=== PATIENT | male | born 1950 | race Caucasian/White ===

== ENCOUNTER → 2020-10-02 16:22 | Outpatient (BNVA) | payer MEDICARE, OTHER, SELFPAY | PROVIDERS: Family Provider Nurse Practitioner; PCP Nurse Practitioner; Visit Provider Nurse Practitioner | DX: M79.604 Pain in right leg (principal); M47.817 Spondylosis without myelopathy or radiculopathy, lumbosacral region; Z12.11 Encounter for screening for malignant neoplasm of colon | CPT/HCPCS: 80053; 85025 ==

== ENCOUNTER → 2020-10-08 15:20 | Outpatient (BNVA) | payer MEDICARE, OTHER, SELFPAY | PROVIDERS: Family Provider Nurse Practitioner; PCP Nurse Practitioner; Visit Provider Nurse Practitioner | DX: Z12.11 Encounter for screening for malignant neoplasm of colon (principal) | CPT/HCPCS: 82270 ==

== ENCOUNTER → 2021-07-27 10:12 | Outpatient (BNVA) | payer MEDICARE, OTHER, SELFPAY | PROVIDERS: Family Provider Nurse Practitioner; PCP Nurse Practitioner; Visit Provider Nurse Practitioner | DX: Z13.6 Encounter for screening for cardiovascular disorders (principal); M47.817 Spondylosis without myelopathy or radiculopathy, lumbosacral region | CPT/HCPCS: 80053; 80061; 85025 ==

== ENCOUNTER 2022-03-24 11:50 | Oncology outpatient (recurring) (ONCR) | payer MEDICARE, OTHER, SELFPAY | END 2022-03-30 23:59 | disposition home or self-care (01) | PROVIDERS: Family Provider Nurse Practitioner; PCP Nurse Practitioner; Visit Provider Internal Medicine Hematology & Oncology | DX: C50.822 Malignant neoplasm of overlapping sites of left male breast (principal); Z17.0 Estrogen receptor positive status [ER+]; Z90.12 Acquired absence of left breast and nipple; M47.817 Spondylosis without myelopathy or radiculopathy, lumbosacral region; R22.41 Localized swelling, mass and lump, right lower limb; Z12.11 Encounter for screening for malignant neoplasm of colon; Z79.818 Long term (current) use of other agents affecting estrogen receptors and estrogen levels; Z79.899 Other long term (current) drug therapy | CPT/HCPCS: 99204; 99205; 99999 ==

== ENCOUNTER 2022-03-30 13:25 | Outpatient (CLI) | payer MEDICARE, OTHER, SELFPAY ==
--- NOTE | 2022-03-30 13:47 | MM_ITS ---
WS: [id number] BILATERAL 3D TOMOSYNTHESIS DIGITAL DIAGNOSTIC MAMMOGRAPHY WITH CAD CLINICAL INFORMATION: LEFT BREAST MASS HISTORY: Invasive ductal carcinoma from recent in office biopsy. LEFT nipple retraction. COMPARISON: None. TECHNIQUE: Bilateral CC, MLO, and ML views. FINDINGS: Scattered fibroglandular densities bilaterally. Palpable marker LEFT breast. Spiculated underlying As ymmetric mass. Ultrasound is pending. RIGHT breast appears unremarkable ULTRASOUND BREAST LEFT TECHNIQUE: Ultrasound left breast focused area of concern. CLINICAL INFORMATION: LEFT BREAST MASS COMPARISON: None. FINDINGS: Ultrasound LEFT breast at the areola. In the area of palpable concern, there is a hypoechoic densely shadowing solid lesion consistent with neoplasm. This measures approximately 1.3 x 1.3 x 1.5 cm with associated vascularity. This extends to the nipple. In addition enlarged abnormal-appearing lymph nodes in the LEFT axilla with replacement of the vnai l fatty hilum the largest measuring 1.5 x 0.6 x 1.3 cm highly suspicious for metastatic disease. Additional abnormal suspicious lymph nodes measuring 0.6 x 0.7 x 0.9 cm and 0.8 x 0.4 x 0.8 cm also s uspicious for metastatic disease. RIGHT nipple for comparison IMPRESSION: MM/[place] [id number] BI-RADS: 6-Known Biopsy-Proven Malignancy FOLLOW UP: US Guided Biopsy Recommended Previous punch biopsy of the areola was performed in office. Recommend ultrasou nd-guided biopsy of the LEFT subareolar LEFT breast mass and largest LEFT axill prateek lymph node In addition, Recommend breast surgery consultation for further evaluation.
--- NOTE | 2022-03-30 13:49 | US_ITS ---
WS: [id number] Subcutaneous ultrasound of the anterior right thigh, 03/30/2022 Clinical Data: Right tight mass Comparison: Subcutaneous ultrasound of the anterior right thigh, 02/17/2018 Findings: The anterior medial right thigh has a well bordered mass measuring 1.30 x 4.97 x 7.84 cm. The mass de monstrates mixed echotexture and minimal blood flow. This mass has changed little compared to the nando or study. Again this mass may represent a soft tissue neoplasm of low malignant potential. US/US soft tissue/extremity [id number] Impression: Soft tissue mass of the right thigh with little change from 4 years ago.
== END 2022-03-30 13:26 | disposition home or self-care (01) ==
PROVIDERS: Family Provider Nurse Practitioner; PCP Nurse Practitioner; Visit Provider Surgery
DX: C50.922 Malignant neoplasm of unspecified site of left male breast (principal); R22.41 Localized swelling, mass and lump, right lower limb
CPT/HCPCS: 76642; 76882; 77062

== ENCOUNTER 2022-04-05 10:19 | Day surgery (SDC) | payer MEDICARE, OTHER, SELFPAY ==
[2022-04-02 11:03] VITALS: BMI 26.6
[2022-04-05] VITALS (7 sets, daily range): BP systolic 136–155; BP diastolic 72–105; PULSE 61–84; RESP 16–18; TEMP 36.3–36.6; O2SAT 96–100
--- NOTE | 2022-04-05 11:06 | NM_ITS ---
WS: [id number] NUCLEAR MEDICINE SENTINEL LYMPH NODE IMAGING HISTORY: BREAST CANCER, LEFT COMPARISON: None available. TECHNIQUE: The patient was injected with 1.1 mCi of Technetium 99 ultra filtered sulfur colloid. Inje ction is intradermal in a periareolar location. Four aliquots are used. NM/NM sentinel node inject [id number] IMPRESSION: LEFT breast sentinel lymph node injection. Injection completed at 11:06 AM.
--- NOTE | 2022-04-05 11:18 | PC.NURSE ---
LEFT BREAST SENTINEL NODE INJECTION OF 1.03 mCi Tc99m Filtered Sulfur Colloid BY DR ANA CANO COMPLETED AT 1106 AM
[2022-04-05] MEDS: sodium chloride 0.9% 1,000 ML 30 ML IV (11:30)
[2022-04-05] MEDS: heparin 5,000 unit/mL INJ 1 mL 5000 UNIT SUBCUT (11:47)
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
--- NOTE | 2022-04-05 14:38 | W.PM.OPSUD ---
Surgery/Procedure H&P Update DATE OF PROCEDURE: April 05, 2022 DATE H&P PERFORMED: 03/24/22 CHANGES TO PREVIOUS DOCUMENTATION: no mediport being placed at this time. PREOP DIAGNOSIS: Breast Cancer PRIMARY INDICATION FOR PROCEDURE: breast cancer PLANNED PROCEDURE: Operation Date: 04/05/22 13:00 Proposed Procedures p left mastectomy and sential lymph node bx and port placment [id number] 26230/C50.922(Left) - DO raymond Morrissey Sentinal Lymph Node Biopsy(Left) - DO raymond Morrissey Portacath Placement(Not Applicable) - Mazin Gan DO
[2022-04-05] MEDS: isosulfan blue 10 mg/mL SDV 5mL SUBCUT (15:10)
--- NOTE | 2022-04-05 17:33 | P.OP_ITS ---
Operative Report Date of procedure: April 05, 2022 Pre-op diagnosis: Preop Diagnosis Breast Cancer Post-op diagnosis: Left breast cancer Procedure done: Left sentinel lymph node biopsy and modified radical mastectomy Specimens removed/disposition: 1. [place] Lymph nodes 2. Left modified radical mastectomy 3. Additional axillary contents Surgeon: Dr. Mazin Gan DO Estimated blood loss: 50 Brief History: 71-year-old gentleman found to have left breast cancer. He has nipple involvement and retraction as well as adjacent skin involvement. Mastectomy and sentinel lymph node biopsy were indicated. Risks and benefits were explained and documented. Procedure: Patient was 1 operative room placed on the OR table in the supine position. General endotracheal intubation was achieved by the department of anesthesia. Lymphazurin blue was injectedinto the mass which was subareolar. This area was massaged for 5 minutes.? We prepped and draped the left breast and axilla.? A timeout was performed.? All present were in agreement.? A somewhat obliqueexcision was made from medial to the latissimus dorsi to lateral to the sternum, encompassing the nipple and all obviously involved skin. The lateral dissection was performed first.? I dissected down to the latissimus dorsi and superior to the fascia using Bovie cautery.? Using Bovie cautery and the [place] counter I searched for a sentinel node.? With much exploration, no lymph node could be found with a significant [place] counter or blue dye.? Multiple prominent nodes were identified and excised. Clinically these were positive for tumor. These were sent for frozen section. No lymph node tissue was identified on frozen section however these were tumor metastases. Attention was then brought back to the mastectomy.? The horizontal ellipse excision was made with a 15 blade scalpel and carried down to the fatty tissue with Bovie cautery.? I started with the superior flap and removed all the breast tissue using Bovie cautery.? This was carried up to the clavipectoral fascia and down to the pectoralis major.? All breast tissue was removed laterally to the latissimus dorsi and proximally to the sternum.? I then went to the inferior flap. All breast tissue was removed with Bovie cautery down to the inframammary fold.? I carried the dissection down to the pectoralis major and removed all the breast tissue in its entirety.? Hemostasis was achieved with electrocautery and medium sized clips.? I then moved into the axilla for an axillary dissection. The clavipectoral fascia was further incised and axillary tissue was removed en bloc. The long thoracic nerve and thoracic dorsal nerve were identified and preserved. The intercostal brachial nerve was identified and clipped and transected. The breast and axillary contents were removed and a stitch was plac ed on the medial margin to long the specimen.? The specimen was passed off.? Further dissection was performed in the axilla and additional axillary contents were removed and sent to pathology. The surgical field was irrigated and suctioned.? There were no signs of bleeding.? A 19 [place] drain was then placed underneath the skin and sewn in place with 3-0 nylon.? There was a small area of skin in the axilla which appeared to potentially be compromised due to dissection too close to the dermis. This area was excised in an elliptical fashion. Dermis was then approximated with 3-0 Vicryl in interrupted fashion.? Skin was then closed with 4-0 Vicryl in a subcuticular running fashion.? Skin glue and bandage was applied. Patient tolerated the procedure well and was wheeled in the postoperative anesthesia care unit in good condition.
[2022-04-05] MEDS: HYDROcodone-acetaminophen 5-325 mg Tablet 2 TAB PO (18:52)
[2022-04-19 09:15] LABS: Miscellaneous Test See Scanned Lab Rpt
== END 2022-04-05 19:13 | disposition home or self-care (01) ==
PROVIDERS: Family Provider Nurse Practitioner; PCP Nurse Practitioner; Visit Provider Surgery
PROC: (CPT 19303; principal; 2022-04-05 13:00)
PROC: (CPT 19307; 2022-04-05 13:00)
DX: C50.022 Malignant neoplasm of nipple and areola, left male breast (principal); Z79.82 Long term (current) use of aspirin
CPT/HCPCS: 19307; 38500; 38792; 88307; 88331; 88361; 88374; A9541; J1100; J1170; J1644; J2405; J2704; J3010; J3490; J7030; Q9968

== ENCOUNTER 2022-04-28 09:30 | Oncology outpatient (recurring) (ONCR) | payer MEDICARE, OTHER, SELFPAY ==
[2022-04-28 09:33] LABS: Basophils # 0.1 10^3/uL (0.0-0.1); Basophils % 1.3 %; Eosinophils # 0.2 10^3/uL (0.0-0.8); Eosinophils % 4.9 %; Hematocrit 40.5 % (42.0-52.0); Hemoglobin 13.7 g/dL (11.7-16.6); Lymphocytes # 1.9 10^3/uL (0.8-4.8); Lymphocytes % 39.2 %; Mean Corpuscular HGB Conc 33.8 g/dL (30.0-36.0); Mean Corpuscular Hemoglobin 31.6 pg (28.0-34.0); Mean Corpuscular Volume 93.3 fl (80-94); Mean Platelet Volume 9.6 fL (7.4-10.4); Monocytes # 0.8 10^3/uL (0.2-0.9); Monocytes % 15.9 %; Neutrophils # 1.82 10^3/uL (1.8-7.7); Neutrophils % 38.5 %; Nucleated Red Blood Cells % 0 %; Platelet Count 334 10^3/cmm (130-400); Red Blood Count 4.34 10^6/uL (4.1-5.3); Red Cell Distribution Width 14.2 % (12.1-15.1); White Blood Count 4.7 10^3/uL (4.0-10.0)
[2022-04-28 10:05] LABS: Alanine Aminotransferase 13 U/L (0-41); Albumin Level 4.3 g/dL (3.5-5.2); Alkaline Phosphatase 93 IU/L (40-130); Anion Gap 12.3 (5-19); Aspartate Amino Transferase 19 U/L (0-40); Blood Urea Nitrogen 9 mg/dL (8-23); Calcium 8.6 mg/dL (8.5-10.5); Carbon Dioxide 28 mmol/L (22-29); Chloride 103 mmol/L (98-107); Creatinine Clr Calc Pharmacy 82.9909; Globulin 3.1 g/dL (1.3-4.6); Glucose 85 mg/dL (65-115); Osmolality Calculated 286 mOsm/kg (285-295); Potassium 4.3 mmol/L (3.5-5.1); Sodium 139 mmol/L (136-145); Total Bilirubin 0.4 mg/dL (0.15-1.2); Total Protein 7.4 g/dL (6.6-8.7)
== END 2022-04-29 23:59 | disposition home or self-care (01) ==
PROVIDERS: Family Provider Nurse Practitioner; PCP Nurse Practitioner; Visit Provider Internal Medicine Hematology & Oncology
DX: C50.822 Malignant neoplasm of overlapping sites of left male breast (principal); Z17.0 Estrogen receptor positive status [ER+]; Z90.12 Acquired absence of left breast and nipple; C77.8 Secondary and unspecified malignant neoplasm of lymph nodes of multiple regions; M47.817 Spondylosis without myelopathy or radiculopathy, lumbosacral region; R22.41 Localized swelling, mass and lump, right lower limb
CPT/HCPCS: 36415; 80053; 85025; 99213; 99214

== ENCOUNTER → 2022-05-11 09:06 | Outpatient (BNVA) | payer MEDICARE, OTHER, SELFPAY | PROVIDERS: Family Provider Nurse Practitioner; PCP Nurse Practitioner; Visit Provider Surgery | DX: C50.922 Malignant neoplasm of unspecified site of left male breast (principal); R59.1 Generalized enlarged lymph nodes | CPT/HCPCS: 99213 ==

== ENCOUNTER 2022-05-31 05:38 | Day surgery (SDC) | payer MEDICARE, OTHER, SELFPAY ==
[2022-05-28 10:25] VITALS: BMI 25.9
[2022-05-31] VITALS (8 sets, daily range): BP systolic 124–182; BP diastolic 82–98; PULSE 67–85; RESP 14–17; TEMP 36.2–36.4; O2SAT 95–98
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
[2022-05-31] MEDS: sodium chloride 0.9% 1,000 ML 30 ML IV (06:33)
--- NOTE | 2022-05-31 06:48 | W.PM.OPSUD ---
Surgery/Procedure H&P Update DATE OF PROCEDURE: May 31, 2022 DATE H&P PERFORMED: 05/11/22 CHANGES TO PREVIOUS DOCUMENTATION: NONE PREOP DIAGNOSIS: Right supraclavicular lymphadenopathy PLANNED PROCEDURE: Operation Date: 05/31/22 07:00 Proposed Procedures p EXCISIONAL BX RIGHT SUPRACLAVICULAR LYMPH NODE 11439,R59.1(Right) - Mazin Gan DO
[2022-05-31] MEDS: ceFAZolin 2,000 MG in sodium chloride 0.9% (plus) 50 ML 100 MG IV (06:59)
--- NOTE | 2022-05-31 07:53 | PM.OP ---
Operative Report Date of procedure: May 31, 2022 Pre-op diagnosis: Preop Diagnosis Right supraclavicular lymphadenopathy Post-op diagnosis: same Procedure done: Excisional biopsy right supraclavicular lymph node Specimens removed/disposition: Right supraclavicular lymph node Surgeon: Dr. Mazin Gan DO Anesthesia: General Complications: None apparent Findings: Enlarged and black right supraclavicular lymph node Brief History: Patient with a history of left mastectomy with axillary node dissection for carcinoma Procedure: The right neck was inspected prepped and draped in the usual sterile fashion. A timeout was performed. All present were in agreement 2% lidocaine with epinephrine was used to anesthetize the right supraclavicular area. A 15 blade scalpel then used to make a 5 cm diagonal incision posterior to the sternocleidomastoid.. Incision was carried down to subcutaneous tissue and then through the platysma's. A combination of blunt and sharp dissection was performed to explore the right supraclavicular area. A large and black lymph node was identified. This was removed with sharp dissection, Bovie cautery and medium clips. Specimen was passed off for lymphoma protocol. Hemostasis was noted. Tameka was placed into the wound. The platysmas was approximated using 3-0 Vicryl in interrupted fashion. The dermis was approximated using 3-0 Vicryl in an interrupted fashion. 4-0 Vicryl was use to close the skin in a running subcuticular fashion. Hemostasis was noted. Skin glue was used. Patient tolerated the procedure well.
[2022-05-31] MEDS: meperidine 50 mg/mL INJ 12.5 MG IVP (08:17)
--- NOTE | 2022-05-31 12:33 | ANE.PACU2 ---
Inpatient post-anesthesia follow up: Airway intact: Yes Vital signs: Temperature 97.2 F Pulse Rate 67 Respiratory Rate 16 Blood Pressure 163/82 Pulse Oximetry 96 Oxygen Delivery Me thod Room Air Oxygen Flow Rate Fraction of Inspir ed Oxygen Hydration adequate: Yes Nausea and vomiting: No Pain level: 1 Mental status: Baseline
[2022-06-01 12:53] LABS: Lymphoma Profile (BBPL) See Report
== END 2022-05-31 09:36 | disposition home or self-care (01) ==
PROVIDERS: PCP Nurse Practitioner; Visit Provider Surgery
PROC: (CPT 38500; principal; 2022-05-31 07:00)
DX: R59.1 Generalized enlarged lymph nodes (principal); Z85.3 Personal history of malignant neoplasm of breast; Z87.891 Personal history of nicotine dependence; Z79.82 Long term (current) use of aspirin
CPT/HCPCS: 38500; 87015; 87070; 87102; 87116; 87176; 87205; 87206; 87801; 88184; 88185; 88307; 88342; J1100; J2175; J2405; J2704; J3010; J3490; J7030

== ENCOUNTER → 2022-06-16 13:52 | Outpatient (BNVA) | payer MEDICARE, OTHER, SELFPAY | PROVIDERS: PCP Nurse Practitioner; Visit Provider Surgery | DX: C50.922 Malignant neoplasm of unspecified site of left male breast (principal) | CPT/HCPCS: 99213 ==

== ENCOUNTER 2022-06-28 08:05 | Oncology outpatient (recurring) (ONCR) | payer MEDICARE, OTHER, SELFPAY | END 2022-06-30 23:59 | disposition home or self-care (01) | PROVIDERS: PCP Nurse Practitioner; Visit Provider Internal Medicine Hematology & Oncology | DX: C50.822 Malignant neoplasm of overlapping sites of left male breast (principal); Z17.0 Estrogen receptor positive status [ER+]; Z90.12 Acquired absence of left breast and nipple; M47.817 Spondylosis without myelopathy or radiculopathy, lumbosacral region; R22.41 Localized swelling, mass and lump, right lower limb; Z79.818 Long term (current) use of other agents affecting estrogen receptors and estrogen levels; Z79.899 Other long term (current) drug therapy | CPT/HCPCS: 99214; 99215 ==

== ENCOUNTER 2022-08-17 13:25 | Oncology outpatient (recurring) (ONCR) | payer MEDICARE, OTHER, SELFPAY | END 2022-08-30 23:59 | disposition home or self-care (01) | PROVIDERS: PCP Nurse Practitioner; Visit Provider Internal Medicine Hematology & Oncology | DX: C50.822 Malignant neoplasm of overlapping sites of left male breast (principal); Z17.0 Estrogen receptor positive status [ER+]; Z90.12 Acquired absence of left breast and nipple; Z79.818 Long term (current) use of other agents affecting estrogen receptors and estrogen levels; Z79.899 Other long term (current) drug therapy | CPT/HCPCS: 99214 ==

== ENCOUNTER 2022-09-15 08:05 | Oncology outpatient (recurring) (ONCR) | payer MEDICARE, OTHER, SELFPAY ==
[2022-09-15 08:21] LABS: Basophils # 0.1 10^3/uL (0.0-0.1); Basophils % 1.6 %; Eosinophils # 0.2 10^3/uL (0.0-0.8); Eosinophils % 3.7 %; Hemoglobin 14.6 g/dL (11.7-16.6); Lymphocytes # 1.3 10^3/uL (0.8-4.8); Lymphocytes % 29.4 %; Mean Corpuscular Hemoglobin 31.8 pg (28.0-34.0); Mean Corpuscular Volume 93.7 fl (80-94); Mean Platelet Volume 10.1 fL (7.4-10.4); Monocytes # 0.7 10^3/uL (0.2-0.9); Monocytes % 15.2 %; Neutrophils # 2.17 10^3/uL (1.8-7.7); Neutrophils % 49.9 %; Nucleated Red Blood Cells % 0 %; Platelet Count 276 10^3/cmm (130-400); Red Blood Count 4.59 10^6/uL (4.1-5.3); Red Cell Distribution Width 14.6 % (12.1-15.1); White Blood Count 4.4 10^3/uL (4.0-10.0)
[2022-09-15 08:47] LABS: Alanine Aminotransferase 45 U/L (0-41); Albumin Level 3.9 g/dL (3.5-5.2); Alkaline Phosphatase 71 U/L (40-130); Anion Gap 13.2 (5-19); Aspartate Amino Transferase 32 U/L (0-40); Blood Urea Nitrogen 8 mg/dL (8-23); Carbon Dioxide 29 mmol/L (22-29); Chloride 101 mmol/L (98-107); Globulin 3.4 g/dL (1.3-4.6); Glucose 90 mg/dL (65-115); Osmolality Calculated 286 mOsm/kg (285-295); Potassium 4.2 mmol/L (3.5-5.1); Sodium 139 mmol/L (136-145); Total Bilirubin 0.7 mg/dL (0.15-1.2); Total Protein 7.3 g/dL (6.6-8.7)
== END 2022-09-29 23:59 | disposition home or self-care (01) ==
PROVIDERS: PCP Nurse Practitioner; Visit Provider Internal Medicine Hematology & Oncology
DX: C50.822 Malignant neoplasm of overlapping sites of left male breast (principal); Z17.0 Estrogen receptor positive status [ER+]; Z90.12 Acquired absence of left breast and nipple; C77.8 Secondary and unspecified malignant neoplasm of lymph nodes of multiple regions; Z79.899 Other long term (current) drug therapy; Z79.818 Long term (current) use of other agents affecting estrogen receptors and estrogen levels
CPT/HCPCS: 36415; 80053; 85025; 99205; 99214

== ENCOUNTER → 2022-11-17 09:44 | Outpatient (BNVA) | payer MEDICARE, SELFPAY | PROVIDERS: PCP Nurse Practitioner; Visit Provider Internal Medicine Hematology & Oncology | DX: C50.922 Malignant neoplasm of unspecified site of left male breast (principal) | CPT/HCPCS: 80053; 85025 ==

== ENCOUNTER 2022-11-26 08:15 | Oncology outpatient (recurring) (ONCR) | payer MEDICARE, OTHER, SELFPAY ==
[2022-11-08 09:56] LABS: Basophils # 0.1 10^3/uL (0.0-0.1); Basophils % 1.5 %; Eosinophils # 0.2 10^3/uL (0.0-0.8); Eosinophils % 4.2 %; Hematocrit 43.1 % (42.0-52.0); Lymphocytes # 1.5 10^3/uL (0.8-4.8); Lymphocytes % 32.3 %; Mean Corpuscular HGB Conc 32.5 g/dL (30.0-36.0); Mean Corpuscular Hemoglobin 31.3 pg (28.0-34.0); Mean Corpuscular Volume 96.2 fl (80-94); Mean Platelet Volume 10.2 fL (7.4-10.4); Monocytes # 0.7 10^3/uL (0.2-0.9); Neutrophils # 2.22 10^3/uL (1.8-7.7); Neutrophils % 46.8 %; Nucleated Red Blood Cells % 0 %; Platelet Count 288 10^3/cmm (130-400); Red Blood Count 4.48 10^6/uL (4.1-5.3); Red Cell Distribution Width 14.2 % (12.1-15.1); White Blood Count 4.7 10^3/uL (4.0-10.0)
[2022-11-08 10:20] LABS: Alanine Aminotransferase 30 U/L (0-41); Albumin Level 4.2 g/dL (3.5-5.2); Alkaline Phosphatase 75 U/L (40-130); Anion Gap 13.2 (5-19); Aspartate Amino Transferase 26 U/L (0-40); Blood Urea Nitrogen 8 mg/dL (8-23); Calcium 9.3 mg/dL (8.5-10.5); Carbon Dioxide 29 mmol/L (22-29); Chloride 105 mmol/L (98-107); Globulin 2.7 g/dL (1.3-4.6); Glucose 88 mg/dL (65-115); Osmolality Calculated 292 mOsm/kg (285-295); Potassium 5.2 mmol/L (3.5-5.1); Sodium 142 mmol/L (136-145); Total Bilirubin 0.4 mg/dL (0.15-1.2); Total Protein 6.9 g/dL (6.6-8.7)
[2022-11-26 08:16] LABS: Basophils # 0.1 10^3/uL (0.0-0.1); Basophils % 1.3 %; Eosinophils # 0.2 10^3/uL (0.0-0.8); Eosinophils % 4.4 %; Hematocrit 41.2 % (42.0-52.0); Hemoglobin 13.6 g/dL (11.7-16.6); Lymphocytes # 1.3 10^3/uL (0.8-4.8); Mean Corpuscular Hemoglobin 32.1 pg (28.0-34.0); Mean Corpuscular Volume 97.2 fl (80-94); Mean Platelet Volume 10.3 fL (7.4-10.4); Monocytes # 0.4 10^3/uL (0.2-0.9); Monocytes % 11.5 %; Neutrophils # 1.83 10^3/uL (1.8-7.7); Neutrophils % 47.8 %; Nucleated Red Blood Cells % 0 %; Platelet Count 177 10^3/cmm (130-400); Red Blood Count 4.24 10^6/uL (4.1-5.3); Red Cell Distribution Width 14.3 % (12.1-15.1); White Blood Count 3.8 10^3/uL (4.0-10.0)
[2022-11-26 08:34] LABS: Alanine Aminotransferase 9 U/L (0-41); Alkaline Phosphatase 66 U/L (40-130); Aspartate Amino Transferase 19 U/L (0-40); Blood Urea Nitrogen 10 mg/dL (8-23); Calcium 8.7 mg/dL (8.5-10.5); Carbon Dioxide 30 mmol/L (22-29); Chloride 103 mmol/L (98-107); Globulin 2.9 g/dL (1.3-4.6); Glucose 86 mg/dL (65-115); Osmolality Calculated 288 mOsm/kg (285-295); Sodium 140 mmol/L (136-145); Total Bilirubin 0.4 mg/dL (0.15-1.2); Total Protein 6.9 g/dL (6.6-8.7)
[2022-11-26 08:36] LABS: Anion Gap 11.3 (5-19); Potassium 4.3 mmol/L (3.5-5.1)
== END 2022-11-30 23:59 | disposition home or self-care (01) ==
PROVIDERS: Nurse Practitioner; PCP Nurse Practitioner; Visit Provider Internal Medicine Hematology & Oncology
DX: C50.822 Malignant neoplasm of overlapping sites of left male breast (principal); Z90.12 Acquired absence of left breast and nipple; Z17.0 Estrogen receptor positive status [ER+]; Z79.810 Long term (current) use of selective estrogen receptor modulators (SERMs); Z79.899 Other long term (current) drug therapy
CPT/HCPCS: 36415; 80053; 85025; 99215

== ENCOUNTER 2023-01-24 11:43 | Oncology outpatient (recurring) (ONCR) | payer MEDICARE, OTHER, SELFPAY ==
[2023-01-10 13:47] LABS: Basophils # 0.1 10^3/uL (0.0-0.1); Basophils % 1.6 %; Eosinophils # 0.3 10^3/uL (0.0-0.8); Eosinophils % 5.1 %; Hemoglobin 14.2 g/dL (11.7-16.6); Lymphocytes % 40.7 %; Mean Corpuscular HGB Conc 33.8 g/dL (30.0-36.0); Mean Corpuscular Hemoglobin 32.7 pg (28.0-34.0); Mean Corpuscular Volume 96.8 fl (80-94); Mean Platelet Volume 9.9 fL (7.4-10.4); Monocytes # 0.7 10^3/uL (0.2-0.9); Monocytes % 13.6 %; Neutrophils # 1.91 10^3/uL (1.8-7.7); Neutrophils % 38.6 %; Nucleated Red Blood Cells % 0 %; Platelet Count 276 10^3/cmm (130-400); Red Blood Count 4.34 10^6/uL (4.1-5.3); Red Cell Distribution Width 15.2 % (12.1-15.1); White Blood Count 4.9 10^3/uL (4.0-10.0)
[2023-01-10 14:11] LABS: Alanine Aminotransferase 9 U/L (0-41); Albumin Level 4.2 g/dL (3.5-5.2); Alkaline Phosphatase 68 U/L (40-130); Anion Gap 14.7 (5-19); Aspartate Amino Transferase 23 U/L (0-40); Blood Urea Nitrogen 9 mg/dL (8-23); Calcium 8.7 mg/dL (8.5-10.5); Carbon Dioxide 29 mmol/L (22-29); Chloride 107 mmol/L (98-107); Globulin 2.7 g/dL (1.3-4.6); Glucose 138 mg/dL (65-115); Osmolality Calculated 301 mOsm/kg (285-295); Potassium 5.7 mmol/L (3.5-5.1); Sodium 145 mmol/L (136-145); Total Bilirubin 0.3 mg/dL (0.15-1.2); Total Protein 6.9 g/dL (6.6-8.7)
[2023-01-10 16:56] LABS: Potassium 5.5 mmol/L (3.5-5.1)
[2023-01-24 12:38] LABS: Basophils # 0.1 10^3/uL (0.0-0.1); Basophils % 1.3 %; Eosinophils # 0.1 10^3/uL (0.0-0.8); Hematocrit 41.2 % (42.0-52.0); Hemoglobin 13.7 g/dL (11.7-16.6); Lymphocytes # 1.4 10^3/uL (0.8-4.8); Lymphocytes % 29.2 %; Mean Corpuscular HGB Conc 33.3 g/dL (30.0-36.0); Mean Corpuscular Hemoglobin 31.9 pg (28.0-34.0); Mean Platelet Volume 9.8 fL (7.4-10.4); Monocytes # 0.5 10^3/uL (0.2-0.9); Monocytes % 10.5 %; Neutrophils % 55.8 %; Nucleated Red Blood Cells % 0 %; Platelet Count 227 10^3/cmm (130-400); Red Blood Count 4.29 10^6/uL (4.1-5.3); Red Cell Distribution Width 15.3 % (12.1-15.1); White Blood Count 4.7 10^3/uL (4.0-10.0)
[2023-01-24 12:56] LABS: Alanine Aminotransferase 8 U/L (0-41); Alkaline Phosphatase 55 U/L (40-130); Anion Gap 12.9 (5-19); Aspartate Amino Transferase 17 U/L (0-40); Blood Urea Nitrogen 9 mg/dL (8-23); Calcium 8.5 mg/dL (8.5-10.5); Carbon Dioxide 28 mmol/L (22-29); Chloride 106 mmol/L (98-107); Globulin 2.7 g/dL (1.3-4.6); Glucose 102 mg/dL (65-115); Osmolality Calculated 293 mOsm/kg (285-295); Potassium 4.9 mmol/L (3.5-5.1); Sodium 142 mmol/L (136-145); Total Bilirubin 0.4 mg/dL (0.15-1.2); Total Protein 6.7 g/dL (6.6-8.7)
== END 2023-01-28 23:59 | disposition home or self-care (01) ==
PROVIDERS: Nurse Practitioner; PCP Nurse Practitioner; Visit Provider Internal Medicine Hematology & Oncology
DX: C50.822 Malignant neoplasm of overlapping sites of left male breast (principal); Z17.0 Estrogen receptor positive status [ER+]; Z90.12 Acquired absence of left breast and nipple; C77.8 Secondary and unspecified malignant neoplasm of lymph nodes of multiple regions; D72.819 Decreased white blood cell count, unspecified; R11.0 Nausea; R12 Heartburn; Z79.818 Long term (current) use of other agents affecting estrogen receptors and estrogen levels; Z79.899 Other long term (current) drug therapy
CPT/HCPCS: 36415; 80053; 84132; 85025; 99214

== ENCOUNTER 2023-03-07 10:58 | Oncology outpatient (recurring) (ONCR) | payer MEDICARE, OTHER, SELFPAY ==
[2023-03-07 11:54] LABS: Basophils # 0.1 10^3/uL (0.0-0.1); Eosinophils # 0.2 10^3/uL (0.0-0.8); Eosinophils % 4.1 %; Hematocrit 39.8 % (42.0-52.0); Hemoglobin 13.1 g/dL (11.7-16.6); Lymphocytes # 1.7 10^3/uL (0.8-4.8); Lymphocytes % 33.4 %; Mean Corpuscular HGB Conc 32.9 g/dL (30.0-36.0); Mean Corpuscular Hemoglobin 32.1 pg (28.0-34.0); Mean Corpuscular Volume 97.5 fl (80-94); Mean Platelet Volume 9.9 fL (7.4-10.4); Monocytes # 0.5 10^3/uL (0.2-0.9); Monocytes % 10.5 %; Neutrophils % 50.8 %; Nucleated Red Blood Cells % 0 %; Platelet Count 246 10^3/cmm (130-400); Red Blood Count 4.08 10^6/uL (4.1-5.3); Red Cell Distribution Width 13.9 % (12.1-15.1); White Blood Count 5.1 10^3/uL (4.0-10.0)
[2023-03-07 12:25] LABS: Alanine Aminotransferase 10 U/L (0-41); Albumin Level 3.9 g/dL (3.5-5.2); Alkaline Phosphatase 53 U/L (40-130); Anion Gap 13.3 (5-19); Aspartate Amino Transferase 19 U/L (0-40); Blood Urea Nitrogen 11 mg/dL (8-23); Calcium 8.3 mg/dL (8.5-10.5); Carbon Dioxide 27 mmol/L (22-29); Chloride 103 mmol/L (98-107); Globulin 2.7 g/dL (1.3-4.6); Glucose 99 mg/dL (65-115); Osmolality Calculated 287 mOsm/kg (285-295); Potassium 4.3 mmol/L (3.5-5.1); Sodium 139 mmol/L (136-145); Thyroid Stimulating Hormone 6.83 uIU/mL (0.27-4.20); Total Bilirubin 0.6 mg/dL (0.15-1.2); Total Protein 6.6 g/dL (6.6-8.7)
== END 2023-03-30 23:59 | disposition home or self-care (01) ==
PROVIDERS: Nurse Practitioner Family; PCP Nurse Practitioner; Visit Provider Internal Medicine Hematology & Oncology
DX: C50.822 Malignant neoplasm of overlapping sites of left male breast (principal); Z17.0 Estrogen receptor positive status [ER+]; Z79.818 Long term (current) use of other agents affecting estrogen receptors and estrogen levels; Z79.899 Other long term (current) drug therapy; Z90.12 Acquired absence of left breast and nipple; R19.7 Diarrhea, unspecified; R11.0 Nausea; R53.83 Other fatigue; D72.819 Decreased white blood cell count, unspecified; C77.8 Secondary and unspecified malignant neoplasm of lymph nodes of multiple regions
CPT/HCPCS: 36415; 80053; 84443; 85025; 99214

== ENCOUNTER 2023-04-11 09:45 | Outpatient (CLI) | payer MEDICARE, OTHER, SELFPAY ==
--- NOTE | 2023-04-11 10:35 | MM_ITS ---
WS: [id number] DIAGNOSTIC RIGHT DIGITAL TOMOSYNTHESIS MAMMOGRAPHY WITH CAD. HISTORY: ANNUAL - HX BREAST CA;LT MST COMPARISON: 03/30/2022 Technique: CC, MLO and ML views. Breast composition: The breasts are almost entirely fatty. No suspicious masses or distortion. No ni pple retraction or skin thickening. MM/[place] [id number] IMPRESSION: BI-RADS: 1-Negative FOLLOW UP: 1 Year Follow-up
== END 2023-04-11 09:46 | disposition home or self-care (01) ==
LOC: RAD 09:48
PROVIDERS: PCP Nurse Practitioner; Visit Provider Nurse Practitioner Family
DX: Z85.3 Personal history of malignant neoplasm of breast (principal)
CPT/HCPCS: 77061; G0279

== ENCOUNTER 2023-06-06 10:48 | Oncology outpatient (recurring) (ONCR) | payer MEDICARE, OTHER, SELFPAY ==
[2023-06-06 10:57] VITALS: BP 111/69; PULSE 76; RESP 16; TEMP 37; O2SAT 96
[2023-06-06 11:09] LABS: Basophils # 0.1 10^3/uL (0.0-0.1); Eosinophils # 0.2 10^3/uL (0.0-0.8); Eosinophils % 2.9 %; Hematocrit 41.8 % (42.0-52.0); Lymphocytes # 1.5 10^3/uL (0.8-4.8); Lymphocytes % 29.7 %; Mean Corpuscular HGB Conc 33.5 g/dL (30.0-36.0); Mean Corpuscular Hemoglobin 32.2 pg (28.0-34.0); Mean Corpuscular Volume 96.1 fl (80-94); Mean Platelet Volume 9.5 fL (7.4-10.4); Monocytes # 0.6 10^3/uL (0.2-0.9); Monocytes % 11.8 %; Neutrophils # 2.82 10^3/uL (1.8-7.7); Neutrophils % 54.2 %; Nucleated Red Blood Cells % 0 %; Platelet Count 261 10^3/cmm (130-400); Red Blood Count 4.35 10^6/uL (4.1-5.3); Red Cell Distribution Width 13.5 % (12.1-15.1); White Blood Count 5.2 10^3/uL (4.0-10.0)
[2023-06-06 11:30] LABS: Alanine Aminotransferase 21 U/L (0-41); Alkaline Phosphatase 55 U/L (40-130); Anion Gap 13.9 (5-19); Aspartate Amino Transferase 24 U/L (0-40); Blood Urea Nitrogen 11 mg/dL (8-23); Calcium 8.5 mg/dL (8.5-10.5); Carbon Dioxide 29 mmol/L (22-29); Chloride 103 mmol/L (98-107); Globulin 2.9 g/dL (1.3-4.6); Glucose 117 mg/dL (65-115); Osmolality Calculated 292 mOsm/kg (285-295); Potassium 4.9 mmol/L (3.5-5.1); Sodium 141 mmol/L (136-145); Total Bilirubin 0.4 mg/dL (0.15-1.2); Total Protein 6.9 g/dL (6.6-8.7)
== END 2023-06-30 23:59 | disposition home or self-care (01) ==
PROVIDERS: Nurse Practitioner Family; PCP Nurse Practitioner; Visit Provider Internal Medicine Hematology & Oncology
DX: C50.822 Malignant neoplasm of overlapping sites of left male breast (principal); Z17.0 Estrogen receptor positive status [ER+]; Z79.818 Long term (current) use of other agents affecting estrogen receptors and estrogen levels; Z79.899 Other long term (current) drug therapy; Z90.12 Acquired absence of left breast and nipple; C77.8 Secondary and unspecified malignant neoplasm of lymph nodes of multiple regions
CPT/HCPCS: 36415; 80053; 85025; 99214

== ENCOUNTER → 2023-06-16 13:42 | Outpatient (BNVA) | payer MEDICARE, OTHER, SELFPAY | PROVIDERS: PCP Nurse Practitioner; Visit Provider Nurse Practitioner Family | DX: Z85.828 Personal history of other malignant neoplasm of skin (principal); L57.8 Other skin changes due to chronic exposure to nonionizing radiation; L57.0 Actinic keratosis; L81.4 Other melanin hyperpigmentation | CPT/HCPCS: 17000; 17003; 99213 ==

== ENCOUNTER 2023-09-16 08:56 | Oncology outpatient (recurring) (ONCR) | payer MEDICARE, OTHER, SELFPAY ==
[2023-09-16 09:25] VITALS: BP 102/71; PULSE 72; RESP 17; TEMP 37.3; O2SAT 96
[2023-09-16 09:30] LABS: Basophils # 0.1 10^3/uL (0.0-0.1); Basophils % 1.1 %; Eosinophils # 0.2 10^3/uL (0.0-0.8); Eosinophils % 3.7 %; Hematocrit 41.2 % (37-53); Lymphocytes # 1.5 10^3/uL (0.8-4.8); Lymphocytes % 33.7 %; Mean Corpuscular HGB Conc 33.7 g/dL (30-55); Mean Corpuscular Hemoglobin 32.3 pg (27-33); Mean Corpuscular Volume 95.8 fl (82-101); Mean Platelet Volume 10.5 fL (7.4-10.4); Monocytes # 0.9 10^3/uL (0.2-0.9); Neutrophils # 1.86 10^3/uL (1.8-7.7); Neutrophils % 41.1 %; Nucleated Red Blood Cells % 0 %; Platelet Count 313 10^3/cmm (157-399); Red Cell Distribution Width 13.7 % (12.1-15.1); White Blood Count 4.54 10^3/uL (3.29-11.43)
[2023-09-16 09:55] LABS: Alanine Aminotransferase 72 U/L (0-41); Alkaline Phosphatase 58 U/L (40-130); Anion Gap 11.8 (5-19); Aspartate Amino Transferase 40 U/L (0-40); Blood Urea Nitrogen 10 mg/dL (8-23); Calcium 8.8 mg/dL (8.5-10.5); Carbon Dioxide 27 mmol/L (22-29); Chloride 108 mmol/L (98-107); Chol HDL Ratio 3.33 mg/dL (1.0-5.00); Cholesterol 153 mg/dL (0-200); Glucose 74 mg/dL (65-115); HDL Cholesterol 46 mg/dL (60-100); Iron 124 ug/dL (59-158); LDL Cholesterol Calculated 92 mg/dL (50-129); Osmolality Calculated 292 mOsm/kg (285-295); Potassium 4.8 mmol/L (3.5-5.1); Sodium 142 mmol/L (136-145); Thyroid Stimulating Hormone 8.52 uIU/mL (0.27-4.20); Total Bilirubin 0.6 mg/dL (0.15-1.2); Triglycerides 73 mg/dL (0-150); VLDL Cholestrol Calculation 15 mg/dL (0-30)
== END 2023-09-29 23:59 | disposition home or self-care (01) ==
PROVIDERS: PCP Nurse Practitioner; Visit Provider Nurse Practitioner Family
DX: C50.822 Malignant neoplasm of overlapping sites of left male breast (principal); Z17.0 Estrogen receptor positive status [ER+]; C77.8 Secondary and unspecified malignant neoplasm of lymph nodes of multiple regions; Z90.12 Acquired absence of left breast and nipple; Z79.818 Long term (current) use of other agents affecting estrogen receptors and estrogen levels; Z79.899 Other long term (current) drug therapy
CPT/HCPCS: 36415; 80053; 80061; 83540; 84443; 85025; 99214

== ENCOUNTER 2023-12-19 12:33 | Oncology outpatient (recurring) (ONCR) | payer MEDICARE, OTHER, SELFPAY ==
[2023-12-19 12:55] LABS: Basophils # 0.1 10^3/uL (0.0-0.1); Basophils % 1.2 %; Eosinophils # 0.2 10^3/uL (0.0-0.8); Eosinophils % 3.5 %; Hematocrit 41.7 % (37-53); Lymphocytes # 1.9 10^3/uL (0.8-4.8); Lymphocytes % 36.9 %; Mean Corpuscular HGB Conc 33.3 g/dL (30-55); Mean Corpuscular Hemoglobin 32.3 pg (27-33); Mean Corpuscular Volume 96.8 fl (82-101); Mean Platelet Volume 10.1 fL (7.4-10.4); Monocytes # 0.7 10^3/uL (0.2-0.9); Monocytes % 13.3 %; Neutrophils # 2.32 10^3/uL (1.8-7.7); Neutrophils % 44.9 %; Nucleated Red Blood Cells % 0 %; Platelet Count 281 10^3/cmm (157-399); Red Blood Count 4.31 10^6/uL (3.85-5.65); White Blood Count 5.17 10^3/uL (3.29-11.43)
[2023-12-19 13:38] LABS: Alanine Aminotransferase 11 U/L (0-41); Albumin Level 3.8 g/dL (3.5-5.2); Alkaline Phosphatase 58 U/L (40-130); Aspartate Amino Transferase 18 U/L (0-40); Blood Urea Nitrogen 11 mg/dL (8-23); Calcium 8.3 mg/dL (8.5-10.5); Carbon Dioxide 30 mmol/L (22-29); Chloride 104 mmol/L (98-107); Glucose 106 mg/dL (65-115); Osmolality Calculated 292 mOsm/kg (285-295); Sodium 141 mmol/L (136-145); Total Bilirubin 0.3 mg/dL (0.15-1.2); Total Protein 6.8 g/dL (6.6-8.7)
[2023-12-19 13:39] LABS: Anion Gap 11.5 (5-19); Potassium 4.5 mmol/L (3.5-5.1)
== END 2023-12-29 23:59 | disposition home or self-care (01) ==
PROVIDERS: Internal Medicine; PCP Nurse Practitioner; Visit Provider Nurse Practitioner Family
DX: C50.822 Malignant neoplasm of overlapping sites of left male breast (principal); Z17.0 Estrogen receptor positive status [ER+]; C77.8 Secondary and unspecified malignant neoplasm of lymph nodes of multiple regions; Z90.12 Acquired absence of left breast and nipple; Z79.818 Long term (current) use of other agents affecting estrogen receptors and estrogen levels; Z79.899 Other long term (current) drug therapy; E03.8 Other specified hypothyroidism; R74.8 Abnormal levels of other serum enzymes; K59.01 Slow transit constipation
CPT/HCPCS: 17000; 36415; 80053; 84443; 85025; 99213; 99214

== ENCOUNTER → 2024-03-19 15:30 | Outpatient (BNVA) | payer MEDICARE, OTHER, SELFPAY | PROVIDERS: PCP Nurse Practitioner; Visit Provider Nurse Practitioner | DX: E03.8 Other specified hypothyroidism (principal) | CPT/HCPCS: 84439; 84443; 84481 ==

== ENCOUNTER 2024-04-25 12:45 | Oncology outpatient (recurring) (ONCR) | payer MEDICARE, OTHER, SELFPAY ==
--- NOTE | 2024-04-24 13:26 | MM_ITS ---
WS: [id number] VIEWS: MLO, CC, and ML views RIGHT breast only. 3D digital tomosynthesis is also included in this ex am. Comparison made with prior exam of 03/30/2022, 04/11/2023.. Findings: Questionable new small parenchymal density identified in the inferior lateral RIGHT breast on the MLO and ML view only. Compression spot images with tomography recommended for further work-up in additio n to regional ultrasound. The remaining aspect of the RIGHT breast is stable in appearance without ch vite. There are scattered areas of fibroglandular density MM/[place] [id number] Impression: BI-RADS: 0-Incomplete: Need additional imaging evaluation FOLLOW-UP: See Report This mammogram was also analyzed by the Computer Aided Detection System R2 Imag e Product Management Manager.
--- NOTE | 2024-04-24 14:00 | XR_ITS ---
WS: [id number] SCREENING DEXA SCAN [employer] CLINICAL INFORMATION: hx of breast cancer COMPARISON: None. FINDINGS: The L1-L4 bone mineral density measures 1.215 g/cm2. This corresponds to a T score score of 0.0 and Z score of 0.8. Left femoral neck bone mineral density measures 0.819 g/cm2. This corresponds to a T score of -2.0 an d Z score of -0.9. Right femoral neck bone mineral density measures 0.848 g/cm2. This corresponds to a T score -1.8of an d Z score of -0.7. Mean femoral neck bone mineral density measures 0.834 g/cm2. This corresponds to a T score of -1.9 an d Z score of -0.8. XR/XR DEXA axial skeleton* [id number] IMPRESSION: Normal bone mineralization lumbar spine. Osteopenia femoral necks. Patient's FRAX calculated 10 year probability for major osteoporotic fracture i s 8.0% and osteoporotic hip fracture is 2.7%.
[2024-04-25 12:34] LABS: Basophils # 0.1 10^3/uL (0.0-0.1); Basophils % 1.2 %; Eosinophils # 0.4 10^3/uL (0.0-0.8); Eosinophils % 6.1 %; Hematocrit 40.5 % (37-53); Lymphocytes # 2.2 10^3/uL (0.8-4.8); Lymphocytes % 36.5 %; Mean Corpuscular HGB Conc 33.3 g/dL (30-55); Mean Corpuscular Hemoglobin 31.8 pg (27-33); Mean Corpuscular Volume 95.5 fl (82-101); Mean Platelet Volume 10.1 fL (7.4-10.4); Monocytes # 0.8 10^3/uL (0.2-0.9); Monocytes % 13.7 %; Neutrophils # 2.49 10^3/uL (1.8-7.7); Neutrophils % 42.2 %; Nucleated Red Blood Cells % 0 %; Platelet Count 242 10^3/cmm (157-399); Red Blood Count 4.24 10^6/uL (3.85-5.65); White Blood Count 5.91 10^3/uL (3.29-11.43)
[2024-04-25 12:59] LABS: Alanine Aminotransferase 13 U/L (0-41); Alkaline Phosphatase 64 U/L (40-130); Anion Gap 12.6 (5-19); Aspartate Amino Transferase 20 U/L (0-40); Blood Urea Nitrogen 12 mg/dL (8-23); Calcium 8.3 mg/dL (8.5-10.5); Carbon Dioxide 28 mmol/L (22-29); Chloride 103 mmol/L (98-107); Globulin 2.8 g/dL (1.3-4.6); Glucose 87 mg/dL (65-115); Osmolality Calculated 287 mOsm/kg (285-295); Potassium 4.6 mmol/L (3.5-5.1); Sodium 139 mmol/L (136-145); Total Bilirubin 0.4 mg/dL (0.15-1.2); Total Protein 6.8 g/dL (6.6-8.7)
[2024-04-25 15:41] LABS: 25 Hydroxy Vitamin D 34 ng/mL (30-100)
== END 2024-04-29 23:59 | disposition home or self-care (01) ==
PROVIDERS: Internal Medicine Medical Oncology; PCP Nurse Practitioner; Visit Provider Nurse Practitioner Family
DX: Z53.9 Procedure and treatment not carried out, unspecified reason; C50.922 Malignant neoplasm of unspecified site of left male breast; M85.80 Other specified disorders of bone density and structure, unspecified site; Z79.899 Other long term (current) drug therapy; Z87.891 Personal history of nicotine dependence; Z17.0 Estrogen receptor positive status [ER+]; Z90.12 Acquired absence of left breast and nipple; Z92.3 Personal history of irradiation; Z79.810 Long term (current) use of selective estrogen receptor modulators (SERMs)
CPT/HCPCS: 36415; 77061; 77080; 80053; 82306; 85025; 99214; G0279

== ENCOUNTER 2024-05-17 11:13 | Oncology outpatient (recurring) (ONCR) | payer MEDICARE, OTHER, SELFPAY ==
--- NOTE | 2024-05-17 11:30 | MM_ITS ---
WS: [id number] Right breast diagnostic 3D tomosynthesis digital mammogram, 05/17/2024 Clinical Data: HX OF BREAST CANCER Comparison: 04/24/2024, 04/11/2023 03/30/2022 Findings: The compression views of the right breast in the mediolateral and mediolateral oblique positions do n ot demonstrate any mass. Only normal breast tissue is seen. The previously noted density is absent. MM/[place] [id number] Impression: 1. Normal right breast mammogram. 2. The density seen on the prior mammogram probably represented asymmetric [address] tissue. 3. Recommend annual right breast mammogram. BIRADS: 1-Negative FOLLOW UP: 1 Year Follow-up The CAD template checker was used.
== END 2024-05-30 23:59 | disposition home or self-care (01) ==
PROVIDERS: PCP Nurse Practitioner; Visit Provider Internal Medicine Medical Oncology
DX: C50.822 Malignant neoplasm of overlapping sites of left male breast (principal); E03.8 Other specified hypothyroidism; R74.8 Abnormal levels of other serum enzymes; K59.01 Slow transit constipation; Z85.3 Personal history of malignant neoplasm of breast; Z17.0 Estrogen receptor positive status [ER+]; C77.8 Secondary and unspecified malignant neoplasm of lymph nodes of multiple regions; Z90.12 Acquired absence of left breast and nipple; Z79.818 Long term (current) use of other agents affecting estrogen receptors and estrogen levels; Z79.899 Other long term (current) drug therapy; C50.922 Malignant neoplasm of unspecified site of left male breast
CPT/HCPCS: 77061; G0279

== ENCOUNTER → 2024-11-20 12:15 | Outpatient (BNVA) | payer MEDICARE, OTHER, SELFPAY | PROVIDERS: PCP Nurse Practitioner; Visit Provider Nurse Practitioner | DX: Z13.6 Encounter for screening for cardiovascular disorders (principal); E03.8 Other specified hypothyroidism; E61.1 Iron deficiency | CPT/HCPCS: 80053; 80061; 83540; 84443; 85025 ==

== ENCOUNTER → 2025-02-12 15:43 | Outpatient (BNVA) | payer MEDICARE, OTHER, SELFPAY | PROVIDERS: PCP Nurse Practitioner; Visit Provider Nurse Practitioner | DX: E03.8 Other specified hypothyroidism (principal) | CPT/HCPCS: 84439; 84443; 84481 ==

== ENCOUNTER 2025-05-23 10:25 | Outpatient (CLI) | payer MEDICARE, OTHER, SELFPAY ==
--- NOTE | 2025-05-23 10:40 | MM_ITS ---
WS: [id number] RIGHT 3D TOMOSYNTHESIS DIGITAL MAMMOGRAPHY WITH CAD CLINICAL INFORMATION: breast cancer HISTORY: History of LEFT mastectomy COMPARISON: TECHNIQUE: 3 views of the right breast were obtained. FINDINGS: Scattered fibroglandular densities of the right breast. No suspicious focal mass, asymmetry, calcifications, or architectural distortion. No evidence of malignancy. MM/MM diag RT tomosynthesis [id number] IMPRESSION: DENSITY: There are scattered areas of fibroglandular density. BI-RADS: 2 - Benign. FOLLOW UP: 1 Year Follow-up Recommend return to annual diagnostic mammography.
== END 2025-05-23 10:26 | disposition home or self-care (01) ==
LOC: RAD 10:29
PROVIDERS: PCP Nurse Practitioner; Visit Provider Internal Medicine Medical Oncology
DX: Z08 Encounter for follow-up examination after completed treatment for malignant neoplasm (principal); Z85.3 Personal history of malignant neoplasm of breast; Z90.12 Acquired absence of left breast and nipple
CPT/HCPCS: 77061; G0279

== ENCOUNTER 2025-05-31 09:24 | Oncology outpatient (recurring) (ONCR) | payer MEDICARE, OTHER, SELFPAY ==
[2025-05-31 10:36] LABS: Hematocrit 40.0 % (37-53); Hemoglobin 13.20 g/dL (11.27-16.99); Mean Corpuscular HGB Conc 33.0 g/dL (30-55); Mean Corpuscular Hemoglobin 31.1 pg (27-33); Mean Corpuscular Volume 94.1 fl (82-101); Nucleated Red Blood Cells % 0 %; Platelet Count 233 10^3/cmm (157-399); Red Blood Count 4.25 10^6/uL (3.85-5.65); White Blood Count 4.40 10^3/uL (3.29-11.43)
[2025-05-31 11:10] LABS: Alanine Aminotransferase 10 U/L (0-41); Albumin Level 3.9 g/dL (3.5-5.2); Alkaline Phosphatase 66 U/L (40-130); Anion Gap 13.6 (5-19); Aspartate Amino Transferase 17 U/L (0-40); Blood Urea Nitrogen 8 mg/dL (8-23); Calcium 8.7 mg/dL (8.5-10.5); Carbon Dioxide 28 mmol/L (22-29); Chloride 104 mmol/L (98-107); Cholesterol 133 mg/dL (0-200); Creatinine Clr Calc Pharmacy 72.6281; Globulin 2.9 g/dL (1.3-4.6); Glucose 97 mg/dL (65-115); HDL Cholesterol 43 mg/dL (60-100); Osmolality Calculated 290 mOsm/kg (285-295); Potassium 4.6 mmol/L (3.5-5.1); Sodium 141 mmol/L (136-145); Thyroid Stimulating Hormone 0.06 uIU/mL (0.27-4.20); Total Protein 6.8 g/dL (6.6-8.7); Triglycerides 60 mg/dL (0-150); VLDL Cholestrol Calculation 12 mg/dL (0-30)
== END 2025-06-30 23:59 | disposition home or self-care (01) ==
PROVIDERS: Internal Medicine Medical Oncology; PCP Nurse Practitioner; Visit Provider Internal Medicine
DX: C50.922 Malignant neoplasm of unspecified site of left male breast (principal); E03.8 Other specified hypothyroidism; R74.8 Abnormal levels of other serum enzymes; K59.01 Slow transit constipation; Z85.3 Personal history of malignant neoplasm of breast; Z79.899 Other long term (current) drug therapy; Z13.6 Encounter for screening for cardiovascular disorders; Z12.5 Encounter for screening for malignant neoplasm of prostate
CPT/HCPCS: 36415; 80053; 80061; 82306; 84443; 85025; 99213; G0103

== ENCOUNTER → 2025-08-08 15:28 | Outpatient (BNVA) | payer MEDICARE, OTHER, SELFPAY | PROVIDERS: PCP Nurse Practitioner; Visit Provider Nurse Practitioner | DX: E03.8 Other specified hypothyroidism (principal); E55.9 Vitamin D deficiency, unspecified | CPT/HCPCS: 80053; 80061; 82306; 84439; 84443; 84481 ==